=== PATIENT | male | born 1995 | race Caucasian/White ===

== ENCOUNTER 2023-02-13 21:10 | Emergency (ER) | payer OTHER ==
[2023-02-13] MEDS ORDERED: LORazepam 2 MG/ML INJ IM STA (21:30)
[2023-02-13 21:31] VITALS: TEMP 98.5
--- NOTE | 2023-02-13 23:02 | ED ---
General Adult HPI - General Chief complaint: Anxiety Stated complaint: Weakness Time Seen by Provider: 02/13/23 21:25 Source: patient Mode of arrival: EMS Limitations: no limitations - History of Present Illness Initial comments: 27-year-old male presenting with chief complaint of tingling all over the body. Patient arrives via EMS. Per family on scene patient was having a panic attack due to his girlfriend breaking up with him. Patient was initially complaining of headache and nausea and route he was given 4 mg of Zofran which improved his symptoms. At this time patient showing no acute signs of distress. No chest pain, difficulty breathing, abdominal pain, nausea, vomiting, fever, weakness. - Related Data Allergies Allergy/AdvReac Type Severity Reaction Status Date / Time No Known Allergies Allergy Verified 02/13/23 21:31 Review of Systems ROS Statement: Those systems with pertinent positive or pertinent negative responses have been documented in the HPI. ROS Other: All systems not noted in ROS Statement are negative. Past Medical History Past Medical History: No Reported History History of Any Multi-Drug Resistant Organisms: None Reported Past Surgical History: No Surgical Hx Reported Past Psychological History: Bipolar Smoking Status: Never smoker Past Alcohol Use History: None Reported Past Drug Use History: None Reported General Exam Limitations: no limitations General appearance: alert, in no apparent distress Head exam: Present: atraumatic, normocephalic, normal inspection Eye exam: Present: normal appearance, EOMI Neck exam: Present: normal inspection, full ROM Respiratory exam: Present: normal lung sounds bilaterally. Absent: respiratory distress, wheezes, rales, rhonchi, stridor Cardiovascular Exam: Present: regular rate, normal rhythm, normal heart sounds. Absent: systolic murmur, diastolic murmur, rubs, gallop, clicks Extremities exam: Present: normal inspection, full ROM Neurological exam: Present: alert, oriented X3 Expanded Patient oriented to: Present: person, place, time Speech: Present: fluid speech Cranial nerves: EOM's Intact: Normal Motor strength exam: RUE: 5, LUE: 5, RLE: 5, LLE: 5 Eye Response: (4) open spontaneously Motor Response: (6) obeys commands Verbal Response: (5) oriented [place] Total: 15 Psychiatric exam: Present: normal affect, normal mood Skin exam: Present: warm, dry, intact, normal color. Absent: rash Course Vital Signs 02/13/23 02/13/23 21:12 23:07 Temperature 98.5 F Pulse Rate 85 81 Respiratory 18 16 Rate Blood Pressure 144/84 132/78 O2 Sat by Pulse 97 98 Oximetry EKG Findings - EKG Comments: EKG Findings:: sinus rhythm ventricular rate 84. NC interval 179. QRS 14. QT 370. QTc 411. Medical Decision Making - Medical Decision Making Was pt. sent in by a medical professional or institution (MONA Mcclure, SENIOR TRAINING SPECIALIST, urgent care, hospital, or detention...) When possible be specific @ -[No] Did you speak to anyone other than the patient for history (EMS, parent, family, police, friend...)? What history was obtained from this source @ -EMS Did you review nursing and triage notes (agree or disagree)? Why? @ -[I reviewed and agree with nursing and triage notes] Were old charts reviewed (outside hosp., previous admission, EMS record, old EKG, old radiological studies, urgent care reports/EKG's, detention records)? Report findings @ -[No old charts were reviewed] Differential Diagnosis (chest pain, altered mental status, abdominal pain women, abdominal pain men, vaginal bleeding, weakness, fever, dyspnea, syncope, headache, dizziness, GI bleed, back pain, seizure, CVA, palpatations, mental health, musculoskeletal)? @ -differential includes panic attack, ALLERGIC reaction, medication side effect, this is not an all inclusive list EKG interpreted by me (3pts min.). @ -[As above] X-rays interpreted by me (1pt min.). @ -chest x-ray shows no acute process CT interpreted by me (1pt min.). @ -[None done] U/S interpreted by me (1pt. min.). @ -[None done] What testing was considered but not performed or refused? (CT, X-rays, U/S, labs)? Why? @ -[None] What meds were considered but not given or refused? Why? @ -[None] Did you discuss the management of the patient with other professionals (professionals i.e. MONA Mcclure, SENIOR TRAINING SPECIALIST, lab, RT, psych nurse, nursing home social worker, undercoat sprayer, teacher, airfield services officer, foster care case manager)? Give summary @ -[No] Was smoking cessation discussed for >3mins.? @ -[No] Was critical care preformed (if so, how long)? @ -[No] Were there social determinants of health that impacted care today? How? (Homelessness, low income, unemployed, alcoholism, drug addiction, transportation, low edu. Level, literacy, decrease access to med. care, custodial, rehab)? @ -[No] Was there de-escalation of care discussed even if they declined (Discuss DNR or withdrawal of care, Hospice)? DNR status @ -[No] What co-morbidities impacted this encounter? (DM, HTN, Smoking, COPD, CAD, Cancer, CVA, ARF, Chemo, Hep., AIDS, mental health diagnosis, sleep apnea, morbid obesity)? @ -[None] Was patient admitted / discharged? Hospital course, mention meds given and route, prescriptions, significant lab abnormalities, going to OR and other pertinent info. @ -27-year-old male presenting with chief complaint of diffuse tingling all over the body. I'm told that this started while he was having a panic attack because his girlfriend broke up with him by EMS who were told this by family was seen. patient is showing no acute signs of distress during the evaluation. No focal neurological deficits, GCS is 15. Heart and lungs are clear to auscultation. patient is given 1 mg Ativan. EKG shows no dysrhythmia or ischemic changes. Chest x-ray shows no acute process. On reassessment patient is resting comfortably showing no acute signs of distress. he is requesting to be discharged. He is educated on today's findings. Follow-up with PCP. Report back to ER with any new or worsening symptoms. Discussed return parameters and answered all questions. Patient conveyed verbal understanding and agreed to the plan. I discussed this case in detail with my attending Dr. Camargo Undiagnosed new problem with uncertain prognosis? @ -[No] Drug Therapy requiring intensive monitoring for toxicity (Heparin, Nitro, Insulin, Cardizem)? @ -[No] Were any procedures done? @ -[No] Diagnosis/symptom? @ -panic Attack Acute, or Chronic, or Acute on Chronic? @ -acute Uncomplicated (without systemic symptoms) or Complicated (systemic symptoms)? @ -complicated Side effects of treatment? @ -[No] Exacerbation, Progression, or Severe Exacerbation? @ -[No] Poses a threat to life or bodily function? How? (Chest pain, USA, MS, pneumonia, PE, COPD, DKA, ARF, appy, cholecystitis, CVA, Diverticulitis, Homicidal, Suicidal, threat to staff... and all critical care pts) @ -[No] Disposition Clinical Impression: Panic attack Disposition: HOME SELF-CARE Condition: Good Instructions (If sedation given, give patient instructions): Generalized Anxiety Disorder (ED) Additional Instructions: Follow-up with PCP. Report back to ER with any new or worsening symptoms. Is patient prescribed a controlled substance at d/c from ED?: No Referrals: None,Stated [Primary Care Provider] - 1-2 days Jacinto Gee MD [STAFF PHYSICIAN] - 1-2 days Freddy Awad MD [STAFF PHYSICIAN] - 1-2 days Time of Disposition: 23:02
[2023-02-13 23:09] VITALS: BP 132/78; PULSE 81; RESP 16
--- NOTE | 2023-02-13 23:32 | XR ---
EXAMINATION TYPE: XR chest 2V DATE OF EXAM: 02/13/2023 9:51 PM CLINICAL INDICATION:Male, 27 years old with history of anxiety; [facility] COMPARISON: None TECHNIQUE: XR chest 2V Frontal and lateral views of the chest. FINDINGS: Lines/Tubes: No indwelling lines are seen. Lungs/Pleura: There is no evidence of pleural effusion, focal consolidation, or pneumothorax. Pulmonary vascularity: Unremarkable. Heart/mediastinum: Cardiac silhouette appears normal in size. Mildly tortuous aorta. Musculoskeletal: No acute osseous abnormality is seen. Unremarkable soft tissues. Other findings: None IMPRESSION: No acute cardiopulmonary disease/process.
== END 2023-02-13 23:08 | disposition home or self-care (01) ==
LOC: EC 21:10
DX: F41.0 Panic disorder [episodic paroxysmal anxiety] (principal); F31.9 Bipolar disorder, unspecified
CPT/HCPCS: 93005; 71046; 99284; 96372; J2060